=== PATIENT | female | born 1975 | race Caucasian/White ===

== ENCOUNTER 2018-12-16 19:07 | Emergency (ER) | payer MEDICARE, MEDICAID ==
[~2018-12-16] VITALS: Ht 170.2 cm; Wt 83.0 kg
[2018-12-16 19:11] VITALS: BP 142/88
--- NOTE | 2018-12-16 19:39 | NUR ---
bed adjusted for comfort and ice pack provided
[2018-12-16] MEDS ORDERED: DOXY100C43 PO (21:01)
== END 2018-12-16 21:13 | disposition home or self-care (01) ==
LOC: ER 19:08
DX: L03.116 Cellulitis of left lower limb (principal); Z88.1 Allergy status to other antibiotic agents; Z88.2 Allergy status to sulfonamides; Z79.2 Long term (current) use of antibiotics
CPT/HCPCS: 99283

== ENCOUNTER 2018-12-20 12:21 | Emergency (ER) | payer MEDICARE, MEDICAID ==
[~2018-12-20] VITALS: Ht 170.2 cm; Wt 83.0 kg
[~2018-12-20 12:21] MED LIST: DOXY100C43 PO
[2018-12-20 12:37] VITALS: BP 140/91
[2018-12-20] MEDS ORDERED: LIDOcaine 1% w/EPI 1:100,000 30ml vial (MDV) ONE (13:00)
[2018-12-20] MEDS ORDERED: TETanus/Pertussis (Acell)/Diphther VAC/PF (Tdap-Adult) 0.5ml syringe IM ONE (14:05)
== END 2018-12-20 14:27 | disposition home or self-care (01) ==
LOC: ER 12:21
DX: L02.416 Cutaneous abscess of left lower limb (principal); L03.116 Cellulitis of left lower limb; Z88.1 Allergy status to other antibiotic agents; Z88.2 Allergy status to sulfonamides; Z88.8 Allergy status to other drugs, medicaments and biological substances; Z79.899 Other long term (current) drug therapy
CPT/HCPCS: 10060; 90471; 99283

== ENCOUNTER 2018-12-25 13:25 | Emergency (ER) | payer MEDICARE, MEDICAID ==
[~2018-12-25] VITALS: Ht 170.2 cm; Wt 83.6 kg
[2018-12-25 13:33] VITALS: BP 135/87
== END 2018-12-25 14:28 | disposition home or self-care (01) ==
LOC: ER 13:26
DX: S91.002D Unspecified open wound, left ankle, subsequent encounter (principal); Z88.1 Allergy status to other antibiotic agents; Z88.2 Allergy status to sulfonamides; Z79.2 Long term (current) use of antibiotics; X58.XXXD Exposure to other specified factors, subsequent encounter
CPT/HCPCS: 99281

== ENCOUNTER 2020-05-17 15:06 | Emergency (ER) | payer MEDICARE, MEDICAID ==
[~2020-05-17] VITALS: Ht 170.2 cm; Wt 90.8 kg
[2020-05-17 15:23] VITALS: BP 124/91
== END 2020-05-17 16:07 | disposition home or self-care (01) ==
LOC: ER 15:06
DX: M25.561 Pain in right knee (principal); R22.41 Localized swelling, mass and lump, right lower limb; Z88.1 Allergy status to other antibiotic agents; Z88.2 Allergy status to sulfonamides; Z88.8 Allergy status to other drugs, medicaments and biological substances
CPT/HCPCS: 73564; 99283

== ENCOUNTER 2021-10-03 14:43 | Emergency (ER) | payer MEDICARE, MEDICAID ==
[~2021-10-03] VITALS: Ht 170.2 cm; Wt 84.1 kg
[2021-10-03 14:52] VITALS: BP 159/109
[2021-10-03] MEDS ORDERED: HYDROcodone/acetaminophen 10/325mg tab PO ONE (15:00)
== END 2021-10-03 15:21 | disposition home or self-care (01) ==
LOC: ER 14:44
DX: K08.89 Other specified disorders of teeth and supporting structures (principal); Z88.0 Allergy status to penicillin; Z88.2 Allergy status to sulfonamides; Z88.8 Allergy status to other drugs, medicaments and biological substances
CPT/HCPCS: 99283

== ENCOUNTER 2023-05-29 08:25 | Emergency (ER) | payer MEDICARE, MEDICAID ==
[~2023-05-29] VITALS: Ht 167.6 cm; Wt 86.5 kg
[2023-05-29 08:39] VITALS: BP 140/91; PULSE 95; RESP 17; TEMP 98.4; O2SAT 97
[2023-05-29] MEDS ORDERED: TETanus/Pertussis (Acell)/Diphther VAC/PF (Tdap-Adult) 0.5ml syringe IMVAC ONE (09:35)
[2023-05-29] MEDS ORDERED: DOXY-356 PO (09:36)
[2023-05-29] MEDS ORDERED: IBUP-1984 PO (09:36)
[2023-05-29] MEDS ORDERED: DOXYCYCLINE 100MG CAPSULE PO STA ×3 (10:03→10:06)
== END 2023-05-29 10:46 | disposition home or self-care (01) ==
LOC: ER 08:26
DX: S61.451A Open bite of right hand, initial encounter (principal); Z88.1 Allergy status to other antibiotic agents; Z88.2 Allergy status to sulfonamides; Z88.8 Allergy status to other drugs, medicaments and biological substances; Z79.2 Long term (current) use of antibiotics; Z23 Encounter for immunization; W55.01XA Bitten by cat, initial encounter; Y93.89 Activity, other specified; Y92.89 Other specified places as the place of occurrence of the external cause; Y99.8 Other external cause status
CPT/HCPCS: 90471; 90715; 99284

== ENCOUNTER 2024-07-06 13:07 | Emergency (ER) | payer MEDICARE, MEDICAID ==
[~2024-07-06] VITALS: Ht 170.2 cm; Wt 62.9 kg
[2024-07-06 13:09] VITALS: BP 151/99; PULSE 86; RESP 15; O2SAT 98
[2024-07-06] MEDS ORDERED: HYDR-3973 PO (14:39)
[2024-07-06] MEDS ORDERED: CLIN300C63 PO (14:39)
[2024-07-06 14:56] VITALS: TEMP 98.4
== END 2024-07-06 14:57 | disposition home or self-care (01) ==
LOC: ER 13:08
DX: K04.7 Periapical abscess without sinus (principal); Z88.0 Allergy status to penicillin; Z88.2 Allergy status to sulfonamides; Z88.1 Allergy status to other antibiotic agents
CPT/HCPCS: 99283